=== PATIENT | male | born 1950 | race Caucasian/White ===

== ENCOUNTER 2017-12-15 17:01 | Inpatient (IN) | payer MEDICARE, OTHER ==
[~2017-12-15] VITALS: Ht 180.3 cm; Wt 119.0 kg
[~2017-12-15 17:01] MED LIST: Z.0.NO CURRENT MEDS
[2017-12-15] MEDS ORDERED: IODIXANOL 320 MG/ML 10 ML VIAL (for Rad CT) IVCONTRAST ONE (17:02)
[2017-12-15] MEDS ORDERED: GADODIAMIDE PF 287 MG/ML 5 ML VIAL (for RAD MRI) IV PUSH ONE (17:02)
[2017-12-15 17:08] VITALS: BP 169/82; PULSE 92; RESP 18; O2SAT 97
[2017-12-15] MEDS ORDERED: SODIUM CHLOR 0.9% 1000 ML INJ 1,000 ML IV ONE (17:09)
[2017-12-15 17:16] VITALS: BP 169/86; PULSE 86; RESP 18; TEMP 98.1; O2SAT 96; O2SAT 97
[2017-12-15 17:24] LABS: AUTOMATED NEUTROPHIL # 10.9 TH/MM3 (1.8-7.7); BASOPHIL # 0.1 TH/MM3 (0-0.2); BASOPHIL % 0.4 % (0.0-2.0); EOSINOPHIL % 0.1 % (0.0-4.0); HEMATOCRIT 49.5 % (39.0-51.0); HEMOGLOBIN 16.7 GM/DL (13.0-17.0); LYMPH % 7.2 % (9.0-44.0); LYMPHOCYTE # 0.9 TH/MM3 (1.0-4.8); MEAN CELL VOLUME 88.8 FL (80.0-100.0); MEAN CORPUSCULAR HGB CONC 33.8 % (32.0-36.0); MEAN PLATELET VOLUME 7.6 FL (7.0-11.0); MONO % 3.4 % (0.0-8.0); MONOCYTE # 0.4 TH/MM3 (0-0.9); NEUT % 88.9 % (16.0-70.0); PLATELET COUNT 254 TH/MM3 (150-450); RED BLOOD COUNT 5.57 MIL/MM3 (4.50-5.90); WHITE BLOOD COUNT 12.2 TH/MM3 (4.0-11.0)
[2017-12-15 17:39] LABS: PROTHROMBIN TIME - PATIENT 10.6 SEC (9.8-11.6)
[2017-12-15 17:39] LABS: BACTERIA, URINE RARE /hpf; BILIRUBIN, URINE NEG (NEG); BLOOD, URINE SMALL (NEG); GLUCOSE,URINE NEG (NEG); KETONE, URINE NEG (NEG); MUCUS URINE FEW /lpf (OCC); NITRITE,URINE NEG (NEG); PH, URINE 5.5 (5.0-8.5); URINE COLOR YELLOW (YELLW/STRAW); URINE LEUKOCYTE ESTERASE NEG (NEG)
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
--- NOTE | 2017-12-15 17:43 | RADRPT ---
EXAM DATE/TIME: 12/15/2017 17:27 [facility] COMPARISON: No previous studies available for comparison. INDICATIONS : Right sided gaze and right sided facial droop today. RADIATION DOSE: 56.35 CTDIvol (mGy) This report was called by Dr. Tijerina to DR. Flor at 1738. MEDICAL HISTORY : Unable to obtain SURGICAL HISTORY : Unable to obtain ENCOUNTER: Initial ACUITY: 1 day PAIN SCALE: Non-responsive LOCATION: cranial TECHNIQUE: Multiple contiguous axial images were obtained of the head. Using automated exposure control and adj ustment of the mA and/or kV according to patient size, radiation dose was kept as low as reasonably a chievable to obtain optimal diagnostic quality images. DICOM format image data is available electro nically for review and comparison. FINDINGS: CEREBRUM: Mild to moderate diffuse cerebral atrophy. The ventricles are normal for degree of atrophy. No evide nce of midline shift, mass lesion, hemorrhage or acute infarction. No extra-axial fluid collections are seen. POSTERIOR FOSSA: The cerebellum and brainstem are intact. The 4th ventricle is midline. The cerebellopontine angle i s unremarkable. EXTRACRANIAL: The visualized portion of the orbits is intact. SKULL: The calvaria is intact. No evidence of skull fracture. CONCLUSION: 1. No acute intracranial normality. Yannick Méndez MD on December 15, 2017 at 17:39 Board Certified Radiologist. This report was verified electronically.
--- NOTE | 2017-12-15 18:16 | RADRPT ---
EXAM DATE/TIME: 12/15/2017 17:32 [facility] COMPARISON: No previous studies available for comparison. INDICATIONS : Right sided gaze and right sided facial droop today. IV CONTRAST: 80 cc Visipaque (iodixanol) IV ; Cumulative dose for multiple exams. RADIATION DOSE: 11.02 CTDIvol (mGy) ; Patient body habitus; Combined Studies MEDICAL HISTORY : Non-responsive. SURGICAL HISTORY : Non-responsive. ENCOUNTER: Initial ACUITY: 1 day PAIN SCALE: Non-responsive LOCATION: Bilateral head TECHNIQUE: Volumetric scanning was performed using a multi-row detector CT scanner. The data was post processed with a variety of visualization algorithms including full volume maximum intensity projection, multi -planar sliding thin slab reformation, curved planar reformation, and surface rendering techniques. Using automated exposure control and adjustment of the mA and/or kV according to patient size, radiat ion dose was kept as low as reasonably achievable to obtain optimal diagnostic quality images. DICO M format image data is available electronically for review and comparison. FINDINGS: Anterior circulation: Distal intracranial internal carotid arteries are patent with flow extending to the middle and anteri or cerebral arteries. The right distal M1 segment is indistinct and incompletely opacified. Sagittal reconstructions suggest an intraluminal defect although likely not completely obstructing. The right M2 branches are opacified. Posterior circulation: Dominant right vertebral artery with flow extending to basilar artery. There is no evidence for aneu rysm, vessel truncation or stenosis, and no evidence for vascular malformation. CONCLUSION: 1. 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 Yannick Méndez MD on December 15, 2017 at 18:04 Board Certified Radiologist. This report was verified electronically.
[2017-12-15 18:31] LABS: TROPONIN I 6.71 NG/ML (0.02-0.05)
--- NOTE | 2017-12-15 18:39 | RADRPT ---
EXAM DATE/TIME: 12/15/2017 17:32 [facility] COMPARISON: No previous studies available for comparison. INDICATIONS : Right sided gaze and right sided facial droop today. IV CONTRAST: 80 cc Visipaque (iodixanol) IV RADIATION DOSE: 11.02 CTDIvol (mGy) ; Combined studies; Patient body habitus MEDICAL HISTORY : Non-responsive. SURGICAL HISTORY : Non-responsive. ENCOUNTER: Initial ACUITY: 1 day PAIN SCALE: Non-responsive LOCATION: Bilateral neck Elevated flow velocities and ICA/CCA ratios have been found to correlate with increased degrees of vessel stenosis, calculated as percentage of diameter relative to a normal segment of distal ICA/CCA. TECHNIQUE: Volumetric scanning was performed using a multirow detector CT scanner. The data was post processed with a variety of visualization algorithms including full-volume maximum intensity projection, multip lanar sliding thin-slab reformation, curved-planar reformation, and surface-rendering techniques. Us ing automated exposure control and adjustment of the mA and/or kV according to patient size, radiatio n dose was kept as low as reasonably achievable to obtain optimal diagnostic quality images. DICOM f ormat image data is available electronically for review and comparison. FINDINGS: AORTIC ARCH: There is direct origin of the left vertebral artery from the aortic arch. Arch vessels are widely pat ent. RIGHT CAROTID: The common carotid artery is intact. The carotid bulb has a normal configuration without ulceration o r narrowing. The internal carotid artery lumen is smooth without stenosis. The external carotid ursula ry is intact. LEFT CAROTID: The common carotid artery is intact. The carotid bulb has a normal configuration without ulceration or narrowing. The internal carotid artery lumen is smooth without stenosis. The external carotid ar kash is intact. VERTEBRALS: Direct origin of the left vertebral artery from the aortic arch. Right vertebral is minimally dominan t and both are patent throughout. CONCLUSION: No evidence of carotid stenosis Jann Castrejon MD on December 15, 2017 at 18:35 Board Certified Radiologist. This report was verified electronically.
[2017-12-15] MEDS: SODIUM CHLOR 0.9% 1000 ML INJ 1,000 ML IV SCH ×2 (18:48→20:03)
--- NOTE | 2017-12-15 18:53 | RADRPT ---
EXAM DATE/TIME: 12/15/2017 18:04 [facility] COMPARISON: No previous studies available for comparison. INDICATIONS : Stroke alert. Right sided weakness. CONTRAST: 25 cc Omniscan (gadodiamide) IV MEDICAL HISTORY : None. SURGICAL HISTORY : None. ENCOUNTER: Initial ACUITY: 1 day PAIN SCORE: 0/10 LOCATION: Head TECHNIQUE: Multiplanar, multisequence MRI of the brain was performed both prior to and following the administrat ion of paramagnetic contrast. FINDINGS: CEREBRUM: The ventricles are normal for age. No evidence of midline shift, mass lesion, hemorrhage or acute in farction. No extraaxial fluid collections are seen. The pituitary gland and suprasellar cistern are normal in configuration. WHITE MATTER: Scattered punctate areas of white matter T2 prolongation which are fairly benign in appearance. POSTERIOR FOSSA: The cerebellum and brainstem are intact. The 4th ventricle is midline. The cerebellopontine angle is unremarkable. The cerebellar tonsils are normal in position. DIFFUSION IMAGING: No focal areas of restricted diffusion are seen. No evidence of acute infarction. EXTRACRANIAL: The visualized portions of the orbits and paranasal sinuses are unremarkable. POST-CONTRAST: Mild asymmetric increased enhancement of the middle cerebral territory vessels on the right which cou ld be a manifestation of compensatory vasodilatation in the setting of nonacute proximal disease. CONCLUSION: No acute intracranial findings Jann Castrejon MD on December 15, 2017 at 18:47 Board Certified Radiologist. This report was verified electronically.
[2017-12-15] MEDS ORDERED: ASPIRIN 325 MG TAB PO ONE (19:15)
--- NOTE | 2017-12-15 19:27 | PD ---
HPI Chief Complaint: Neuro Symptoms/ Deficits Time Seen by Provider: 17:07 Travel History International Travel<30 days: No Contact w/Intl Traveler<30days: No Traveled to known affect area: No History of Present Illness HPI This is a 67-year-old male who presents to the emergency department with weakness. At 10:00 this morning he developed weakness in his right arm and right leg and he called an ambulance. He started to feel better so he sent the way. He says about a half an hour after the ambulance left he developed weakness again and had some difficulty seeing and was off balance, severe, constant until this evening when his family called [facility] again. He has never had symptoms like this before. He denies any chest pain or trouble breathing. [facility] Past Medical History Diminished Hearing: No Tetanus Vaccination: Unknown Influenza Vaccination: No ?: Not Social History Alcohol Use: No Tobacco Use: Yes (08/05 PPD) Substance Use: No Allergies-Medications (Allergen,Severity, Reaction): Coded Allergies: No Known Allergies (Verified Allergy, Mild, 04/13/07) Reported Meds & Prescriptions Reported Meds & Active Scripts Active No Active Prescriptions or Reported Medications Review of Systems Except as stated in HPI: all other systems reviewed are Neg Physical Exam Narrative GENERAL:Well appearing, no acute distress SKIN: Focused skin assessment warm and dry. HEAD: Atraumatic. Normocephalic. EYES: Pupils equal and round. No injection or drainage. ENT: Moist mucous membranes NECK: Trachea midline. CARDIOVASCULAR: Regular rate and rhythm. No murmur appreciated. RESPIRATORY: Clear to auscultation. Breath sounds equal bilaterally. GASTROINTESTINAL: Abdomen soft, non-tender, nondistended. MUSCULOSKELETAL: No obvious deformities. NEUROLOGICAL: Awake and alert. No obvious cranial nerve deficits. Left homonymous hemianopsia. Right upper extremity ataxia and 4+ out of 5 strength in the right upper extremity, 5 out of 5 strength in the right lower extremity and left lower extremity. No dysarthria or aphasia. PSYCHIATRIC: Appropriate mood and affect; insight and judgment normal. Data Data Last Documented VS Vital Signs Date Time Temp Pulse Resp B/P (MAP) Pulse Ox O2 Delivery O2 Flow Rate FiO2 12/15/17 17:56 21 12/15/17 17:16 98.1 86 18 169/86 (113) 96 Room Air Orders Orders Diet Npo (12/15/17 Dinner) Activity Bed Rest (12/15/17 ) Electrocardiogram (12/15/17 ) I-Stat Profile (12/15/17 17:09) Prothrombin Time / Inr (Pt) (12/15/17 17:09) Act Partial Throm Time (Ptt) (12/15/17 17:09) Complete Blood Count With Diff (12/15/17 17:09) Fibrinogen (12/15/17 17:09) Creatine Kinase (Cpk) (12/15/17 17:09) Troponin I (12/15/17 17:09) Ua Includes Microscopic (12/15/17 17:09) Drug Screen, Random Urine (12/15/17:) Type And Screen (12/15/17 17:) Ct Brain W/O Iv Contrast(Rout) (12/15/17 ) Consult Neurology (12/15/17 ) Blood Glucose (12/15/17 17:09) Ecg Monitoring (12/15/17 17:) Neuro Checks Q2HX12,Q4H (12/15/17 17:09) Nursing Bedside Swallow Assess .ONCE (12/15/17 17:) Iv Access Insert/Monitor (12/15/17 17:09) NPO (12/15/17 17:) Oximetry (12/15/17 17:) Resp Oxygen Nc Stroke (12/15/17 ) Sodium Chlor 0.9% 1000 Ml Inj (Ns 1000 M (12/15/17 17:09) Cath For Specimen (12/15/17 17:09) Cta Brain W Iv Contrast W 3d (12/15/17 17:14) Cta Neck W Iv Contrast W 3d (12/15/17 17:14) [place] Sedimentation Rate (12/15/17 17:15) Rapid Plasma Regin (Rpr) W Ttr (12/15/17 17:15) Gracie Screen (12/15/17 17:15) Thyroid Stimulating Hormone (12/15/17 17:15) Free Thyroxine (T4) (12/15/17 17:15) Vitamin B1 (Thiamine) (12/15/17 17:15) Vitamin B12 (12/15/17 17:15) Urinalysis - C+S If Indicated (12/15/17 17:15) Ast (Sgot) (12/15/17 17:15) Alt (Sgpt) (12/15/17 17:15) Mri Brain W&W/O Contrast (12/15/17 17:15) Echo 2d Comp With Doppler (12/15/17 17:15) Holter Monitor Recording (12/15/17 17:15) Circulation Crew Leader / Telemetry NOELLE.Q8H (12/15/17 17:15) [place] (12/15/17 17:15) ^ Other Nursing Orders (12/15/17 17:15) Sodium Chlor 0.9% 1000 Ml Inj (Ns 1000 M (12/15/17 17:15) Lipid Profile (12/15/17 17:15) Scd&Teds Bilateral/Knee High NOELLE.QSHIFT (12/15/17 17:15) (Hub Use Only)Inp Phy Cons/Ref (12/15/17 ) Iodixanol 320 Inj (Rad Ct) (Visipaque 32 (12/15/17 17:02) Gadodiamide Pf Inj (Omniscan Pf Inj) (12/15/17 17:02) Aspirin (Aspirin) (12/15/17 19:15) Heparin-D5w 25,000 U/250 Ml (Heparin-D5w (12/15/17 19:15) Act Partial Throm Time (Ptt) (12/15/17 19:08) Cbc No Diff, Includes Plts (12/15/17 19:08) Cbc No Diff, Includes Plts (12/18/17 06:00) Act Partial Throm Time (Ptt) (12/16/17 02:08) Occult Blood (Hemoccult) Stool (12/15/17 19:08) Labs Laboratory Tests Test 12/15/17 17:09 12/15/17 17:20 White Blood Count 12.2 TH/MM3 Red Blood Count 5.57 MIL/MM3 Hemoglobin 16.7 GM/DL Bedside Hemoglobin 17.0 G/DL Hematocrit 49.5 % Bedside Hematocrit 50.0 % Mean Corpuscular Volume 88.8 FL Mean Corpuscular Hemoglobin 30.0 PG Mean Corpuscular Hemoglobin Concent 33.8 % Red Cell Distribution Width 14.0 % Platelet Count 254 TH/MM3 Mean Platelet Volume 7.6 FL Neutrophils (%) (Auto) 88.9 % Lymphocytes (%) (Auto) 7.2 % Monocytes (%) (Auto) 3.4 % Eosinophils (%) (Auto) 0.1 % Basophils (%) (Auto) 0.4 % Neutrophils # (Auto) 10.9 TH/MM3 Lymphocytes # (Auto) 0.9 TH/MM3 Monocytes # (Auto) 0.4 TH/MM3 Eosinophils # (Auto) 0.0 TH/MM3 Basophils # (Auto) 0.1 TH/MM3 CBC Comment DIFF FINAL Differential Comment Prothrombin Time 10.6 SEC Prothromb Time International Ratio 1.0 RATIO Activated Partial Thromboplast Time 25.0 SEC Fibrinogen 530 mg/dL Bedside Sodium 139 MMOL/L Bedside Potassium 4.3 MMOL/L Bedside Chloride 103 MMOL/L Bedside Blood Urea Nitrogen 15 MG/DL Bedside Creatinine 1.0 MG/DL Bedside Glucose 150 MG/DL Total Creatine Kinase 240 U/L Troponin I 6.71 NG/ML Urine Color YELLOW Urine Turbidity CLEAR Urine pH 5.5 Urine Specific [place] 1.020 Urine Protein 30 mg/dL Urine Glucose (UA) NEG mg/dL Urine Ketones NEG mg/dL Urine Occult Blood SMALL Urine Nitrite NEG Urine Bilirubin NEG Urine Urobilinogen LESS THAN 2.0 MG/DL Urine Leukocyte Esterase NEG Urine RBC 1 /hpf Urine WBC 2 /hpf Urine Bacteria RARE /hpf Urine Mucus FEW /lpf Urine Opiates Screen NEG Urine Barbiturates Screen NEG Urine Amphetamines Screen NEG Urine Benzodiazepines Screen NEG Urine Cocaine Screen NEG Urine Cannabinoids Screen NEG [facility] Medical Decision Making Medical Screen Exam Complete: Yes Emergency Medical Condition: Yes Interpretation(s) EKG: Atrial fibrillation, ST elevation and V2 and V3 with some inferior ST depression. Mild leukocytosis with 88% neutrophils Troponin is 6.7 Last 24 hours Impressions Brain MRI [id number] Signed Impressions: Service Date/Time: Friday, December 15, 2017 18:04 - CONCLUSION: No acute intracranial findings Jann Castrejon MD Neck CTA [id number] Signed Impressions: Service Date/Time: Friday, December 15, 2017 17:32 - CONCLUSION: No evidence of carotid stenosis Jann Castrejon MD Head CTA [id number] Signed Impressions: Service Date/Time: Friday, December 15, 2017 17:32 - CONCLUSION: 1. 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 Yannick Méndez MD Head CT 12/15/17 0000 Signed Impressions: Service Date/Time: Friday, December 15, 2017 17:27 - CONCLUSION: 1. No acute intracranial normality. Yannick Méndez MD Differential Diagnosis Ischemic stroke, hemorrhagic stroke, seizure, myocardial infarction, aortic dissection Narrative Course This is a 67-year-old male who presents to the emergency department with right- sided weakness and left hemianopsia concerning for stroke. His symptoms sound like they started around 1030 this morning but have been stuttering. Here in the emergency department he was seen by the neurology Dr. Richard who requested a CT/ CTA. CTA demonstrated nonocclusive thrombus in M1. MRI demonstrates no ischemic stroke. Patient's symptoms significantly improved while in the emergency department. An EKG was obtained which demonstrates atrial fibrillation as well as ST segment elevation in V2 and V3 with some reciprocal changes. His troponin is 6. The patient denies any chest pain or cardiac symptoms. I spoke to Dr. Armando who agrees the patient does not warrant cardiac catheterization at this time. Both Dr. Armando and Dr. Richard agree patient should be managed with full dose aspirin and heparin. He will be admitted for further evaluation. I suspect this was a TIA and that his troponin elevation is secondary to catecholamines in the setting of a neurologic event. Critical Care Narrative Aggregate critical care time was 50 minutes. Time to perform other separately billable procedures was not included in the critical care time. My time did not include minutes spent treating any other patients simultaneously or on activities that did not directly contribute to the patient's treatment. The services I provided to this patient were to treat and/or prevent clinically significant deterioration that could result in: Disability, I provided critical care services requiring my management, as noted below: Chart data review, documentation time, medication orders and management, vital sign assessments/reviewing monitor data, ordering and reviewing lab tests, ordering and interpreting/reviewing x-rays and diagnostic studies, care of the patient and discussion of the patient with the admitting physicians. Physician Communication Physician Communication Discussed with Dr. Richard and Dr. Aramndo Diagnosis Primary Impression: TIA (transient ischemic attack) Qualified Codes: G45.8 - Other transient cerebral ischemic attacks and related syndromes Additional Impression: Elevated troponin Admitting Information Admitting Physician Requests: Admit Scripts No Active Prescriptions or Reported Meds Heather Flor MD December 15, 2017 19:27
[2017-12-15] MEDS ORDERED: BISACODYL 10 MG SUPP RECTAL PRN (20:00)
[2017-12-15] MEDS ORDERED: ACETAMINOPHEN 325 MG TAB PO PRN (20:00)
[2017-12-15] MEDS ORDERED: MAGNESIUM HYDROXIDE SUSP 30 ML CUP PO PRN (20:00)
[2017-12-15] MEDS ORDERED: ONDANSETRON HCL 4 MG/2 ML VIAL IVP PRN (20:00)
[2017-12-15] MEDS ORDERED: LACTULOSE SYRUP 20 GM/30 ML CUP PO PRN (20:00)
[2017-12-15] MEDS ORDERED: NALOXONE HCL 0.4 MG/ML AMP IV PUSH PRN (20:00)
[2017-12-15] MEDS ORDERED: SODIUM CHLORIDE 0.9% FLUSH 10 ML FLUSH IV FLUSH PRN (20:00)
[2017-12-15] MEDS ORDERED: SENNOSIDES 8.6 MG TAB PO PRN (20:00)
[2017-12-15 20:11] VITALS: BP 138/99
[2017-12-15 20:12] VITALS: PULSE 95
[2017-12-15] MEDS: HEPARIN-D5W 25,000 U/250 ML 250 ML IV PRN (20:33)
[2017-12-15] MEDS: DOCUSATE SODIUM 50 MG/SENNA 8.6 MG TAB PO SCH (21:00)
[2017-12-15] MEDS: SODIUM CHLORIDE 0.9% FLUSH 10 ML FLUSH IV FLUSH SCH (21:00)
[2017-12-15 22:21] LABS: CHOLESTEROL/ HDL RATIO 5.56 RATIO; FREE T4 0.93 NG/DL (0.76-1.46); HDL CHOLESTEROL 41.3 MG/DL (40.0-60.0)
[2017-12-15 23:18] LABS: TROPONIN I 6.46 NG/ML (0.02-0.05)
[2017-12-15 23:46] VITALS: BP 133/78; PULSE 94; RESP 16; O2SAT 98
[2017-12-16] VITALS (22 sets, daily range): BP systolic 116–161; BP diastolic 67–99; PULSE 67–97; RESP 16–22; TEMP 98.6; O2SAT 94–100
--- NOTE | 2017-12-16 00:22 | HHI.HP ---
[facility] Service [facility] Primary Care Physician Unknown Admission Diagnosis tia, elevated troponin Diagnoses: Travel History International Travel<30 Days: No Contact w/Intl Traveler <30 Da: No Traveled to Known Affected Are: No History of Present Illness 67-year-old male with no significant past medical history presents to the emergency department for evaluation of multiple falls and weakness. The patient reports that he came to the emergency department because he fell 2-3 times today. He denies any weakness. He denies hitting his head or loss of consciousness. According to emergency department documentation at 10:00 yesterday morning the patient developed weakness in his right arm and right leg and called an ambulance. The patient started to feel better and sent the ambulance away. The patient then developed weakness again approximately 30 minutes later and had difficulty seeing and was off balance. EMS was again called and the patient came to the hospital for further evaluation. The patient states he feels fine at this time. He denies any chest pain or shortness of breath. No abdominal pain. No nausea/vomiting/diarrhea. No fever /chills. Review of Systems Except as stated in HPI: all other systems reviewed are Neg Past Family Social History Past Medical History Patient denies however he has not been seen by a physician in approximately 5- 10 years Past Surgical History None Reported Medications Reported Meds & Active Scripts Active No Active Prescriptions or Reported Medications Allergies: Coded Allergies: No Known Allergies (Verified Allergy, Mild, 04/13/07) Family History Negative for CAD/DM Social History Smokes approximately 2 packs per day. Denies alcohol and illicit drugs. Physical Exam Vital Signs Vital Signs Date Time Temp Pulse Resp B/P (MAP) Pulse Ox O2 Delivery O2 Flow Rate FiO2 12/15/17 23:46 94 16 133/78 (96) 98 Room Air 12/15/17 22:31 21 12/15/17 20:12 95 12/15/17 20:11 138/99 (112) 12/15/17 17:56 21 12/15/17 17:16 98.1 86 18 169/86 (113) 96 Room Air 12/15/17 17:16 25 12/15/17 17:16 97 Room Air 12/15/17 17:08 92 18 169/82 (644) 71 Physical Exam GENERAL: Obese, male lying in bed SKIN: No rashes, ecchymoses or lesions. Cool and dry. HEAD: Atraumatic. Normocephalic. No temporal or scalp tenderness. EYES: Pupils equal round and reactive. Extraocular motions intact. No scleral icterus. No injection or drainage. ENT: Nose without bleeding, purulent drainage or septal hematoma. Throat without erythema, tonsillar hypertrophy or exudate. Uvula midline. Airway patent. NECK: Trachea midline. No JVD or lymphadenopathy. Supple, nontender, no meningeal signs. CARDIOVASCULAR: Regular rate and rhythm without murmurs, gallops, or rubs. RESPIRATORY: Clear to auscultation. Breath sounds equal bilaterally. No wheezes , rales, or rhonchi. GASTROINTESTINAL: Abdomen soft, non-tender, nondistended. No hepato-splenomegaly , or palpable masses. No guarding. MUSCULOSKELETAL: Extremities without clubbing, cyanosis, or edema. No joint tenderness, effusion, or edema noted. No calf tenderness. NEUROLOGICAL: Awake and alert. Cranial nerves II through XII intact. Patient is unable to fully lift his left upper extremity off the bed although triceps, biceps and handgrip strength all 5/5. Normal speech. Laboratory Laboratory Tests Test 12/15/17 17:09 12/15/17 17:20 12/15/17 20:45 White Blood Count 12.2 Red Blood Count 5.57 Hemoglobin 16.7 Bedside Hemoglobin 17.0 Hematocrit 49.5 Bedside Hematocrit 50.0 Mean Corpuscular Volume 88.8 Mean Corpuscular Hemoglobin 30.0 Mean Corpuscular Hemoglobin Concent 33.8 Red Cell Distribution Width 14.0 Platelet Count 254 Mean Platelet Volume 7.6 Neutrophils (%) (Auto) 88.9 Lymphocytes (%) (Auto) 7.2 Monocytes (%) (Auto) 3.4 Eosinophils (%) (Auto) 0.1 Basophils (%) (Auto) 0.4 Neutrophils # (Auto) 10.9 Lymphocytes # (Auto) 0.9 Monocytes # (Auto) 0.4 Eosinophils # (Auto) 0.0 Basophils # (Auto) 0.1 CBC Comment DIFF FINAL Differential Comment Erythrocyte Sedimentation Rate 4 Prothrombin Time 10.6 Prothromb Time International Ratio 1.0 Activated Partial Thromboplast Time 25.0 Fibrinogen 530 Bedside Sodium 139 Bedside Potassium 4.3 Bedside Chloride 103 Bedside Blood Urea Nitrogen 15 Bedside Creatinine 1.0 Bedside Glucose 150 Aspartate Amino Transf (AST/SGOT) 54 Alanine Aminotransferase (ALT/SGPT) 24 Total Creatine Kinase 240 188 Troponin I 6.71 6.46 Triglycerides Level 107 Cholesterol Level 230 LDL Cholesterol 167 HDL Cholesterol 41.3 Cholesterol/HDL Ratio 5.56 Vitamin B12 Level 300 Free Thyroxine 0.93 Thyroid Stimulating Hormone 3rd Gen 1.720 Urine Color YELLOW Urine Turbidity CLEAR Urine pH 5.5 Urine Specific [place] 1.020 Urine Protein 30 Urine Glucose (UA) NEG Urine Ketones NEG Urine Occult Blood SMALL Urine Nitrite NEG Urine Bilirubin NEG Urine Urobilinogen LESS THAN 2.0 Urine Leukocyte Esterase NEG Urine RBC 1 Urine WBC 2 Urine Bacteria RARE Urine Mucus FEW Urine Opiates Screen NEG Urine Barbiturates Screen NEG Urine Amphetamines Screen NEG Urine Benzodiazepines Screen NEG Urine Cocaine Screen NEG Urine Cannabinoids Screen NEG Result Diagram: 12/15/17 9356 Caprini VTE Risk Assessment Caprini VTE Risk Assessment: Mod/High Risk (score >= 2) Caprini Risk Assessment Model Point Value = 1 Point Value = 2 Point Value = 3 Point Value = 5 Age 41-60 Minor surgery BMI > 25 kg/m2 Swollen legs Varicose veins or History of unexplained or recurrent spontaneous Oral contraceptives or hormone replacement Sepsis (< 1 month) Serious lung disease, including pneumonia (< 1 month) Abnormal pulmonary function Acute myocardial infarction Congestive heart failure (< 1 month) History of inflammatory bowel disease Medical patient at bed rest Age 61-74 Arthroscopic surgery Major open surgery (> 45 min) Laparoscopic surgery (> 45 min) Malignancy Confined to bed (> 72 hours) Immobilizing plaster cast Central venous access Age >= 75 History of VTE Family history of VTE Factor V Leiden Prothrombin [id number] Lupus anticoagulant Anticardiolipin antibodies Elevated serum homocysteine Heparin-induced thrombocytopenia Other congenital or acquired thrombophilia Stroke (< 1 month) Elective arthroplasty Hip, pelvis, or leg fracture Acute spinal cord injury (< 1 month) Prophylaxis Regimen Total Risk Factor Score Risk Level Prophylaxis Regimen 0-1 Low Early ambulation 2 Moderate Order ONE of the following: *Sequential Compression Device (SCD) *Heparin 5000 units SQ BID 3-4 Higher Order ONE of the following medications: *Heparin 5000 units SQ TID *Enoxaparin/Lovenox 40 mg SQ daily (WT < 150 kg, CrCl > 30 mL/min) *Enoxaparin/Lovenox 30 mg SQ daily (WT < 150 kg, CrCl > 10-29 mL/min) *Enoxaparin/Lovenox 30 mg SQ BID (WT < 150 kg, CrCl > 30 mL/min) AND/OR *Sequential Compression Device (SCD) 5 or more Highest Order ONE of the following medications: *Heparin 5000 units SQ TID (Preferred with Epidurals) *Enoxaparin/Lovenox 40 mg SQ daily (WT < 150 kg, CrCl > 30 mL/min) *Enoxaparin/Lovenox 30 mg SQ daily (WT < 150 kg, CrCl > 10-29 mL/min) *Enoxaparin/Lovenox 30 mg SQ BID (WT < 150 kg, CrCl > 30 mL/min) AND *Sequential Compression Device (SCD) Assessment and Plan Assessment and Plan Assessment/plan: 1. CVA Head CT negative Neck CTA negative Brain MRI negative Head CTA showed a nonocclusive versus chronic thrombus in the right distal M1 segment Neurology consulted, appreciate recommendations Aspirin Lipid profile, A1c pending 2. Elevated troponin EKG showed atrial fibrillation without ST segment elevation or depression Initial troponin 6.71, repeat 6.46 Likely secondary to CVA Heparin drip Cardiology consulted, appreciate recommendations ACS rule out pending; serial troponins/EKGs 3. Atrial fibrillation Patient with atrial fibrillation on EKG, with no previous diagnosis of A. fib Cardiology consulted as above Patient will likely need long-term anticoagulation FEN NPO Electrolytes: monitor and replete prn Heparin ggt NS at 75 cc/hr Physician Certification 2 Midnight Certification Type: Admission for Inpatient Services Order for Inpatient Services The services are ordered in accordance with Medicare regulations or non- Medicare payer requirements, as applicable. In the case of services not specified as inpatient-only, they are appropriately provided as inpatient services in accordance with the 2-midnight benchmark. Estimated LOS (days): 2 2 days is the estimated time the patient will need to remain in the hospital, assuming treatment plan goals are met and no additional complications. Post-Hospital Plan: Not yet determined Renata Camargo MD December 16, 2017 00:22
[2017-12-16 00:45] LABS: AMORPHOUS SEDIMENT, URINE RARE; BACTERIA, URINE RARE /hpf; BILIRUBIN, URINE NEG (NEG); BLOOD, URINE SMALL (NEG); GLUCOSE,URINE NEG (NEG); KETONE, URINE NEG (NEG); MUCUS URINE FEW /lpf (OCC); NITRITE,URINE NEG (NEG); PH, URINE 5.5 (5.0-8.5); SQUAMOUS EPITHELIAL CELL URINE 1 /hpf (0-5); URINE COLOR YELLOW (YELLW/STRAW); URINE LEUKOCYTE ESTERASE NEG (NEG)
[2017-12-16 01:27] LABS: TROPONIN I 6.82 NG/ML (0.02-0.05)
[2017-12-16 03:12] LABS: BASOPHIL # 0.1 TH/MM3 (0-0.2); BASOPHIL % 0.7 % (0.0-2.0); EOSINOPHIL % 0.4 % (0.0-4.0); HEMATOCRIT 42.8 % (39.0-51.0); HEMOGLOBIN 15.3 GM/DL (13.0-17.0); LYMPH % 15.5 % (9.0-44.0); LYMPHOCYTE # 1.6 TH/MM3 (1.0-4.8); MEAN CELL VOLUME 87.4 FL (80.0-100.0); MEAN CORPUSCULAR HEMOGLOBIN 31.3 PG (27.0-34.0); MEAN CORPUSCULAR HGB CONC 35.8 % (32.0-36.0); MEAN PLATELET VOLUME 7.7 FL (7.0-11.0); MONOCYTE # 0.7 TH/MM3 (0-0.9); NEUT % 76.4 % (16.0-70.0); PLATELET COUNT 215 TH/MM3 (150-450); WHITE BLOOD COUNT 10.4 TH/MM3 (4.0-11.0)
[2017-12-16] MEDS: HEPARIN-D5W 25,000 U/250 ML 250 ML IV PRN ×2 (03:49→20:22)
[2017-12-16 06:05] LABS: CHOLESTEROL/ HDL RATIO 5.02 RATIO; HDL CHOLESTEROL 37.6 MG/DL (40.0-60.0)
[2017-12-16 06:30] LABS: BICARBONATE 20.1 MEQ/L (21.0-32.0); CALCIUM 8.8 MG/DL (8.5-10.1); CREATININE 0.84 MG/DL (0.60-1.30)
--- NOTE | 2017-12-16 08:00 | HHI.PR ---
Subjective Remarks ?afib? Objective Vital Signs Date Time Temp Pulse Resp B/P (MAP) Pulse Ox O2 Delivery O2 Flow Rate FiO2 12/16/17 07:41 12/16/17 07:13 67 16 116/67 (83) 100 Room Air 12/16/17 07:08 70 16 116/76 (89) 12/16/17 06:18 71 16 133/78 (96) 98 Room Air 12/16/17 05:40 82 16 133/72 (92) 98 Room Air 12/16/17 04:39 82 16 140/92 (108) 100 Room Air 12/16/17 03:53 97 16 150/99 (116) 98 Nasal Cannula 2.00 12/16/17 02:40 82 16 133/78 (96) 98 Room Air 12/16/17 01:36 77 16 124/85 (98) 100 Room Air 12/15/17 23:46 94 16 133/78 (96) 98 Room Air 12/15/17 22:31 21 12/15/17 20:12 95 12/15/17 20:11 138/99 (112) 12/15/17 17:56 21 12/15/17 17:16 98.1 86 18 169/86 (113) 96 Room Air 12/15/17 17:16 25 12/15/17 17:16 97 Room Air 12/15/17 17:08 92 18 169/82 (111) 97 Result Diagram: 12/16/17 0205 12/16/17 0515 Objective Remarks awake alert vff now still left sensory neglect 5/5 t/o Assessment and Plan Assessment and Plan imp drooop and vision resolved mri no cva ? afib on ivhep leroy need anticoag if cards decides this is afib mi also andrew pend ldl 133 needs statin Junior Yanes MD December 16, 2017 08:00
--- NOTE | 2017-12-16 09:56 | EKG ---
Date Performed: 12/15/2017 Time Performed: 17:23:19 PTAGE: 67 years EKG: ATRIAL FIBRILLATION LOW QRS VOLTAGE IN EXTREMITY LEADS SEPTAL MYOCARDIAL INFARCTION LATERAL MYOCARDIAL INFARCTION ACUTE DC ST ELEVATION IN THE ANTEROLATERAL LEADS CLINICAL CORRELATION IS REQUESTED NO PREVIOUS TRACING DOCTOR: Belkis Escobedo Interpretating Date/Time 12/16/2017 09:54:50
--- NOTE | 2017-12-16 09:57 | EKG ---
Date Performed: 12/15/2017 Time Performed: 20:37:19 PTAGE: 67 years EKG: ATRIAL FIBRILLATION WITH ABERRANT CONDUCTION OR VENTRICULAR PREMATURE COMPLEXES MARKED RIGH T AXIS DEVIATION LOW QRS VOLTAGE IN EXTREMITY LEADS SEPTAL MYOCARDIAL INFARCTION PROBABLE LATERAL RAAD CARDIAL INFARCTION ACUTE ME BIPHASIC ANTEROLATERAL T WAVES SUGGESTIVE OF AN EVOLVING ME Compare d to PREVIOUS TRACING , this is consistent with an evolving ME. Clinical correlation is strong ly suggested. PREVIOUS TRACIN12/15/2017 17.23 DOCTOR: Belkis Escobedo Interpretating Date/Time 12/16/2017 09:56:27
[2017-12-16] MEDS: ASPIRIN 325 MG TAB PO SCH (10:42)
[2017-12-16] MEDS: DOCUSATE SODIUM 50 MG/SENNA 8.6 MG TAB PO SCH ×2 (10:43→20:23)
[2017-12-16] MEDS: SODIUM CHLORIDE 0.9% FLUSH 10 ML FLUSH IV FLUSH SCH ×2 (10:45→20:23)
[2017-12-16] MEDS: ATORVASTATIN 40 MG TAB PO SCH (10:45)
[2017-12-16] MEDS: SODIUM CHLOR 0.9% 1000 ML INJ 1,000 ML IV SCH (13:27)
--- NOTE | 2017-12-16 14:20 | MB ---
cc: Bora Armando MD DATE: 12/16/2017 HISTORY OF PRESENT ILLNESS: Jackson is a very pleasant 67-year-old gentleman who presented to the emergency room last night, seen by Dr. Flor for chief complaint of weakness in the right upper extremity, right lower extremity. Also, visual field impairment, ataxia. Was evaluated in the emergency room for a CVA, by Dr. Richard. MRI of the brain was found to be negative. Incidentally was found to have elevated troponin, abnormal EKG. The patient never had any chest pain. Currently denies chest pain, fever, chills, cough, GI, bleeding, PND, orthopnea, syncope or dizziness. PAST MEDICAL HISTORY: As per history of present illness. SOCIAL HISTORY: He smokes 1-1/2 packs of cigarettes a day. Denies alcohol use. ALLERGIES: NONE. MEDICATIONS: In the hospital: Aspirin 325 mg daily, atorvastatin 40 mg daily, heparin drip. PHYSICAL EXAMINATION: VITAL SIGNS: Pulse 72, blood pressure 116/67, respiratory rate 16, temperature on admission 98.1. GENERAL: He is alert and oriented x 3, in no acute distress. NECK: Supple. No JVD. No bruit. HEART: S1, S2. No murmurs, rubs or gallops. LUNGS: Clear to auscultation bilaterally. ABDOMEN: Soft, nontender, nondistended with positive bowel sounds. EXTREMITIES: No lower extremity edema. Grossly appears to be nonfocal. LABORATORY DATA: EKG shows atrial fibrillation at rate of 86 beats per minute with anteroseptal Q-waves and biphasic T-waves with ST elevation of 1-2 mm in the V2, V3. Repeat EKG shows atrial fibrillation at a rate of 76 beats per minute, anteroseptal Q-waves, biphasic T-waves in V2, V3, ST depression in V4, V5, V6 with T-wave inversion in V5, V6 of 2-3 mm amplitude, also T-wave inversion in I and AVL. Third EKG shows atrial fibrillation at a rate of 81 beats per minute, anteroseptal Q-waves, [address] segment elevation in lead V2. Most recent EKG at 5 a.m. today 12/16/2017, atrial fibrillation at a rate of 73 beats per minute, anteroseptal Q-waves, nonspecific ST-T wave changes. Head CT on 12/15/2017, shows no acute intracranial abnormality. Neck CTA shows no evidence of carotid stenosis. Head CTA shows findings consistent with nonocclusive versus chronic thrombus in the right distal M1 segment. MRI of the brain 12/15/2017, no acute intracranial findings. White count 12.2, hemoglobin 16.7, hematocrit 49.5, platelet count 254. INR is 1.0. Fibrinogen is 530. Sodium 138, potassium 4.4, chloride 106, bicarbonate 20.1, BUN 13, creatinine 0.84, glucose 126. Troponin is initially 6.71 followed by 6.46, 6.82, at 6:35 this morning is 5.48. LDL was 133, HDL 37.6. Toxicology is negative. DIAGNOSES: 1. Atrial fibrillation. 2. TIA. 3. Occluded M1 segment per CT of the brain. 4. Tobacco abuse. 5. Non-STEMI. 6. Elevated troponin. 7. Elevated white count. 8. Hyperglycemia. DISCUSSION: The patient is already being treated with aspirin and heparin. His CHADS-VASc score if he is diagnosed with CVA, is at least 2. Dr. Richard has not stated in his note if this is a CVA or TIA however, he has indicated the patient will need anticoagulation if he is in atrial fibrillation and I do think he is in atrial fibrillation based on all 4 of his EKGs. We will defer Coumadin versus Novel Oral Anticoagulant agent to the hospitalist and/or Dr. Richard. Meanwhile, continue heparin drip until this decision is made. Otherwise, the patient is asymptomatic. Recommend followup 2D echo. Recommend ischemic evaluation if and when cleared by neurology for full use of full anticoagulation including possibly Plavix and 2b3a inhibitor. Bora Armando MD AWAbel/TL , 01:40 PM , 02:19 PM
[2017-12-16 16:01] LABS: HEMOGLOBIN A1C 6.8 % (4.3-6.0)
--- NOTE | 2017-12-16 17:14 | HHI.PR ---
Subjective Remarks Patient sitting up in bed. Says he is feeling all right. Denies any unilateral weakness. Denies any chest pain. Objective Vital Signs Date Time Temp Pulse Resp B/P (MAP) Pulse Ox O2 Delivery O2 Flow Rate FiO2 12/16/17 15:24 97 21 12/16/17 14:00 74 12/16/17 13:00 70 12/16/17 12:00 70 12/16/17 11:00 72 12/16/17 10:00 72 12/16/17 09:00 72 12/16/17 08:00 73 12/16/17 07:41 12/16/17 07:13 67 16 116/67 (83) 100 Room Air 12/16/17 07:08 70 16 116/76 (89) 12/16/17 06:18 71 16 133/78 (96) 98 Room Air 12/16/17 05:40 82 16 133/72 (92) 98 Room Air 12/16/17 04:39 82 16 140/92 (108) 100 Room Air 12/16/17 03:53 97 16 150/99 (116) 98 Nasal Cannula 2.00 12/16/17 02:40 82 16 133/78 (96) 98 Room Air 12/16/17 01:36 77 16 124/85 (98) 100 Room Air 12/15/17 23:46 94 16 133/78 (96) 98 Room Air 12/15/17 22:31 21 12/15/17 20:12 95 12/15/17 20:11 138/99 (112) 12/15/17 17:56 21 12/15/17 17:16 98.1 86 18 169/86 (113) 96 Room Air 12/15/17 17:16 25 12/15/17 17:16 97 Room Air 12/15/17 17:08 92 18 169/82 (111) 97 Result Diagram: 12/16/17 0205 12/16/17 0515 Objective Remarks GENERAL: Patient lying in bed. Appears comfortable. Alert and oriented 3. SKIN: Warm and dry. HEAD: Normocephalic. EYES: No scleral icterus. No injection or drainage. NECK: Supple, trachea midline. No JVD. CARDIOVASCULAR: Regular rate and rhythm without murmurs, gallops, or rubs. RESPIRATORY: Breath sounds equal bilaterally. No accessory muscle use. GASTROINTESTINAL: Abdomen soft, non-tender, nondistended. MUSCULOSKELETAL: No cyanosis, or edema. BACK: Nontender without obvious deformity. No CVA tenderness. A/P Assessment and Plan Assessment/plan: //TIA vs Stroke -Initially with left hand weakness which has resolved. Head CT negative Neck CTA negative Brain MRI negative Head CTA showed a nonocclusive versus chronic thrombus in the right distal M1 segment Neurology consulted, appreciate recommendations Aspirin Lipid profile, A1c pending = Follow-up 2D echo. LDL 133. Start atorvastatin. treatment for atrial fibrillation as below. //Elevated troponin EKG showed atrial fibrillation without ST segment elevation or depression Initial troponin 6.71, repeat 6.46 Likely secondary to CVA Heparin drip Cardiology consulted, appreciate recommendations ACS rule out pending; serial troponins/EKGs = Cardiology following.. Appreciate assistance. Ischemic eval for heart when cleared by neurology. //Atrial fibrillation Patient with atrial fibrillation on EKG, with no previous diagnosis of A. fib Cardiology consulted as above Patient will likely need long-term anticoagulation = Patient continues on heparin drip to atrial fibrillation. Cardiology following. Start on warfarin versus novel anticoagulation when approved by neurology. Follow-up 2D echo. FEN NPO Electrolytes: monitor and replete prn Heparin ggt NS at 75 cc/hr Discharge Planning Home with outpatient PT when cleared by cardiology. Skip Mejia MD December 16, 2017 17:14
--- NOTE | 2017-12-16 18:16 | EKG ---
Date Performed: 12/15/2017 Time Performed: 23:54:11 PTAGE: 67 years EKG: ATRIAL FIBRILLATION LOW QRS VOLTAGE IN EXTREMITY LEADS SEPTAL MYOCARDIAL INFARCTION ACUT E CT NO PREVIOUS TRACING DOCTOR: Belkis Escobedo Interpretating Date/Time 12/16/2017 18:15:09
--- NOTE | 2017-12-16 18:17 | EKG ---
Date Performed: 12/16/2017 Time Performed: 05:05:04 PTAGE: 67 years EKG: ATRIAL FIBRILLATION LOW QRS VOLTAGE IN EXTREMITY LEADS ANTEROSEPTAL MYOCARDIAL INFARCTION A BNORMAL ECG PREVIOUS TRACING 12/15/2017 @ 23.54 Since the previous tracing, no significant change no raysa DOCTOR: Belkis Escobedo Interpretating Date/Time 12/16/2017 18:16:08
[2017-12-16] MEDS ORDERED: MELATONIN 5 MG TAB PO ONE (21:00)
[2017-12-17] VITALS (21 sets, daily range): BP systolic 110–148; BP diastolic 65–112; PULSE 67–101; RESP 19–63; TEMP 98.1–98.8; O2SAT 88–97
[2017-12-17] MEDS: SODIUM CHLOR 0.9% 1000 ML INJ 1,000 ML IV SCH ×2 (04:39→13:47)
--- NOTE | 2017-12-17 07:54 | HHI.PR ---
Subjective Remarks afib Objective Vital Signs Date Time Temp Pulse Resp B/P (MAP) Pulse Ox O2 Delivery O2 Flow Rate FiO2 12/17/17 06:00 71 12/17/17 04:00 98.8 70 23 136/80 (98) 94 12/17/17 04:00 70 12/17/17 02:00 88 12/17/17 00:00 98.2 101 63 148/73 (98) 88 12/17/17 00:00 101 12/16/17 22:00 77 12/16/17 20:00 98.6 80 22 161/95 (117) 94 12/16/17 20:00 80 12/16/17 18:00 71 12/16/17 17:00 79 12/16/17 16:00 81 12/16/17 15:24 97 21 12/16/17 15:00 70 12/16/17 14:00 74 12/16/17 13:00 70 12/16/17 12:00 70 12/16/17 11:00 72 12/16/17 10:00 72 12/16/17 09:00 72 12/16/17 08:00 73 I/O 12/16/17 12/16/17 12/16/17 12/17/17 12/17/17 12/17/17 06:59 14:59 22:59 06:59 14:59 22:59 Intake Total 1000 ml 200 ml 1000 ml Output Total 600 ml Balance 1000 ml -400 ml 1000 ml Intake Oral 200 ml IV Total 1000 ml 1000 ml Output Urine Total 600 ml # Voids 3 # Bowel Movements 1 Result Diagram: 12/16/17 0205 12/16/17 0515 Objective Remarks awake alert vff nowno longer left sensory neglect 12/06 t/o Assessment and Plan Assessment and Plan imp droop and vision resolved mri no cva afib on ivhep leroy need anticoag eliquis ok by me mi also andrew pend ldl 133 on statin echo pend cards andrew ok by me no cva but major tia Junior Richard MD December 17, 2017 07:54
[2017-12-17] MEDS: ATORVASTATIN 40 MG TAB PO SCH (09:20)
[2017-12-17] MEDS: ASPIRIN 325 MG TAB PO SCH (09:20)
[2017-12-17] MEDS: DOCUSATE SODIUM 50 MG/SENNA 8.6 MG TAB PO SCH ×2 (09:20→21:00)
[2017-12-17] MEDS: SODIUM CHLORIDE 0.9% FLUSH 10 ML FLUSH IV FLUSH SCH ×2 (09:21→21:35)
--- NOTE | 2017-12-17 14:23 | HHI.PR ---
Subjective Remarks Reports he wants to be get out of the [facility]. He reports no active chest pain or shortness of breath. No further weakness or numbness at this time. Objective Vitals Vital Signs Date Time Temp Pulse Resp B/P (MAP) Pulse Ox O2 Delivery O2 Flow Rate FiO2 12/17/17 12:00 98.3 67 22 110/73 (85) 94 12/17/17 12:00 67 12/17/17 11:00 71 12/17/17 10:00 69 12/17/17 09:08 96 21 12/17/17 09:00 82 12/17/17 08:00 98.1 74 19 139/85 (103) 93 12/17/17 08:00 74 12/17/17 07:00 79 12/17/17 06:00 71 12/17/17 04:00 98.8 70 23 136/80 (98) 94 12/17/17 04:00 70 12/17/17 02:00 88 12/17/17 00:00 98.2 101 63 148/73 (98) 88 12/17/17 00:00 101 12/16/17 22:00 77 12/16/17 20:00 98.6 80 22 161/95 (117) 94 12/16/17 20:00 80 12/16/17 18:00 71 12/16/17 17:00 79 12/16/17 16:00 81 12/16/17 15:24 97 21 12/16/17 15:00 70 I/O 12/16/17 12/16/17 12/16/17 12/17/17 12/17/17 12/17/17 07:00 15:00 23:00 07:00 15:00 23:00 Intake Total 1000 ml 200 ml 1000 ml Output Total 600 ml Balance 1000 ml -400 ml 1000 ml Intake Oral 200 ml IV Total 1000 ml 1000 ml Output Urine Total 600 ml # Voids 3 # Bowel Movements 1 Result Diagram: 12/16/17 0205 12/16/17 0515 Other Results Item Value Date Time Troponin I 5.48 NG/ML *H # 12/16/17 0635 Troponin I 6.82 NG/ML *H # 12/16/17 0000 Objective Remarks GENERAL: This is a well-nourished, well-developed patient, in no apparent distress. CARDIOVASCULAR: Regular rate and irregular rhythm without murmurs, gallops, or rubs. RESPIRATORY: Clear to auscultation. Breath sounds equal bilaterally. No wheezes , rales, or rhonchi. GASTROINTESTINAL: Abdomen soft, non-tender, nondistended. Normal, active bowel sounds MUSCULOSKELETAL: Extremities without clubbing, cyanosis, or edema. NEURO: Alert & Oriented x4 to person, place, time, situation. Moves all ext x4 A/P Assessment and Plan 1. TIA with negative brain MRI Head CT negative Neck CTA negative Brain MRI negative Head CTA showed a nonocclusive versus chronic thrombus in the right distal M1 segment Neurology consulted, appreciate recommendations and recommends heparin with transition to Eliquis pending cardiology evaluation and results of the stress test continue with aspirin. Statin 2. Glucose intolerance with likely underlying early diabetes mellitus type 2 Hemoglobin A1c 6.8. Consult nutrition for diabetic diet education. Accu-Cheks with sliding scale insulin. Consider metformin in the next 48 hours as patient had recent contrast. 3. Elevated troponin rule out underlying non-ST elevation ND. EKG showed atrial fibrillation without ST segment elevation or depression Initial troponin 6.71, with trending levels down Likely secondary to CVA Heparin drip, will transition to Eliquis pending nuclear stress test results. Cardiology consulted, appreciate recommendations 3. Atrial fibrillation -currently rate controlled Patient with atrial fibrillation on EKG, with no previous diagnosis of A. fib Cardiology consulted as above Patient will likely need long-term anticoagulation, Eliquis DVT prophylaxis- heparin Discharge Planning Home tomorrow if stress test negative Ale Dietz MD December 17, 2017 14:23
[2017-12-17] MEDS ORDERED: GLUCAGON 1 MG/ML VIAL OTHER PRN (14:30)
[2017-12-17] MEDS ORDERED: DEXTROSE 50% IN WATER 50 ML VIAL(D50) IV PUSH PRN (14:30)
--- NOTE | 2017-12-17 15:54 | ECHRPT ---
Indication: CVA/TIA CONCLUSIONS Technically difficult study The left ventricular systolic function is low normal with an estimated ejection fraction in the rang e of 50- 55%. Mild mitral valve regurgitation. There is trace tricuspid valve regurgitation. BP: / HR: Rhythm: MEASUREMENTS (Male / Female) Normal Values Technical Quality:Technically difficult study 2D ECHO LV Diastolic Diameter PLAX 5.4 cm 4.2 - 5.9 / 3.9 - 5.3 cm LV Systolic Diameter PLAX 4.3 cm IVS Diastolic Thickness 1.6 cm 0.6 - 1.0 / 0.6 - 0.9 cm LVPW Diastolic Thickness 0.9 cm 0.6 - 1.0 / 0.6 - 0.9 cm LV Relative Wall Thickness 0.5 RV Internal Dim ED PLAX 2.9 cm M-MODE Aortic Root Diameter MM 3.6 cm AV Cusp Separation MM 2.3 cm DOPPLER Mitral E Point Velocity 94.4 cm/s TR Peak Velocity 284.0 cm/s TR Peak Gradient 32.3 mmHg FINDINGS LEFT VENTRICLE Normal left ventricular size. The left ventricular systolic function is low normal with an estimated ejection fraction in the rang e of 50- 55%. There was limited left ventricular wall motion assessment due to poor endocardial visualization. RIGHT VENTRICLE Normal right ventricular size and systolic function. LEFT ATRIUM The left atrial size is normal. RIGHT ATRIUM The right atrial size is normal. ATRIAL SEPTUM Normal atrial septal thickness AORTA The aortic root and proximal ascending aorta are normal in size on limited imaging. MITRAL VALVE Grossly normal appearing. Mild mitral valve regurgitation. Mild mitral annular calcification. AORTIC VALVE Trileaflet aortic valve. No aortic valve stenosis or regurgitation. TRICUSPID VALVE Grossly normal tricuspid valve. There is trace tricuspid valve regurgitation. No tricuspid valve stenosis. PULMONARY VALVE The pulmonary valve is not well visualized. VESSELS The inferior vena cava is normal in size. PERICARDIUM No pericardial effusion. Ridge Bang DO (Electronically Signed) Final Date:17 Dec 2017 15:53
[2017-12-17] MEDS: INSULIN ASPART SUPPLEMENTAL SCALE SQ SCH ×2 (17:00→21:00)
[2017-12-17] MEDS: HEPARIN-D5W 25,000 U/250 ML 250 ML IV PRN (17:02)
[2017-12-18] VITALS (9 sets, daily range): BP systolic 116–164; BP diastolic 59–82; PULSE 66–82; RESP 18–29; TEMP 97.8–98.4; O2SAT 94–99
[2017-12-18] MEDS: SODIUM CHLOR 0.9% 1000 ML INJ 1,000 ML IV SCH ×2 (02:13→15:11)
[2017-12-18] MEDS: SODIUM CHLORIDE 0.9% FLUSH 10 ML FLUSH IV FLUSH SCH ×2 (07:23→22:50)
[2017-12-18] MEDS: DOCUSATE SODIUM 50 MG/SENNA 8.6 MG TAB PO SCH ×2 (07:24→22:50)
[2017-12-18] MEDS: INSULIN ASPART SUPPLEMENTAL SCALE SQ SCH ×4 (07:39→21:00)
--- NOTE | 2017-12-18 07:47 | HHI.PR ---
Subjective Remarks In the chair. Says no chest pain overnight. No sob , palpitations, n/v/d/c. Feels some improvement. today. Objective Vitals Vital Signs Date Time Temp Pulse Resp B/P (MAP) Pulse Ox O2 Delivery O2 Flow Rate FiO2 12/18/17 04:00 73 12/18/17 04:00 98.3 73 20 129/78 (95) 94 12/18/17 02:00 74 12/18/17 00:00 98.4 71 20 148/79 (102) 99 12/18/17 00:00 71 12/17/17 22:00 70 12/17/17 20:35 132/81 (98) 12/17/17 20:08 97 21 12/17/17 20:00 98.6 77 20 144/112 (123) 95 12/17/17 20:00 77 12/17/17 18:00 75 12/17/17 17:00 90 12/17/17 16:00 68 12/17/17 16:00 98.3 68 23 147/65 (92) 94 12/17/17 15:00 70 12/17/17 14:00 71 12/17/17 13:00 70 12/17/17 12:00 98.3 67 22 110/73 (85) 94 12/17/17 12:00 67 12/17/17 11:00 71 12/17/17 10:00 69 12/17/17 09:08 96 21 12/17/17 09:00 82 12/17/17 08:00 98.1 74 19 139/85 (103) 93 12/17/17 08:00 74 I/O 12/17/17 12/17/17 12/17/17 12/18/17 12/18/17 12/18/17 07:00 15:00 23:00 07:00 15:00 23:00 Intake Total 1000 ml 1000 ml 550 ml 60 ml Output Total 800 ml 1150 ml Balance 1000 ml 1000 ml -250 ml -1090 ml Intake Oral 300 ml 60 ml IV Total 1000 ml 1000 ml 250 ml Output Urine Total 800 ml 1150 ml # Voids 3 # Bowel Movements 1 1 Result Diagram: 12/16/17 0205 12/16/17 0515 Imaging Last Impressions Brain MRI 12/15/17 1715 Signed Impressions: Service Date/Time: Friday, December 15, 2017 18:04 - CONCLUSION: No acute intracranial findings Jann Castrejon MD Neck CTA 12/15/17 1714 Signed Impressions: Service Date/Time: Friday, December 15, 2017 17:32 - CONCLUSION: No evidence of carotid stenosis Jann Castrejon MD Head CTA 12/15/17 1714 Signed Impressions: Service Date/Time: Friday, December 15, 2017 17:32 - CONCLUSION: 1. 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 Yannick Méndez MD Head CT 12/15/17 0000 Signed Impressions: Service Date/Time: Friday, December 15, 2017 17:27 - CONCLUSION: 1. No acute intracranial normality. Yannick Méndez MD Objective Remarks CARDIOVASCULAR: Regular rate and irregular rhythm without murmurs, gallops, or rubs. RESPIRATORY: Clear to auscultation. Breath sounds equal bilaterally. No wheezes , rales, or rhonchi. GASTROINTESTINAL: Abdomen soft, non-tender, nondistended. Normal, active bowel sounds MUSCULOSKELETAL: Extremities without clubbing, cyanosis, or edema. NEURO: Alert & Oriented x4 to person, place, time, situation. Moves all ext x4 A/P Assessment and Plan TIA with negative brain MRI Head CT negative Neck CTA negative Brain MRI negative Head CTA showed a nonocclusive versus chronic thrombus in the right distal M1 segment Neurology consulted, appreciate recommendations and recommends heparin with transition to Eliquis pending cardiology evaluation and results of the stress test continue with aspirin. Statin Glucose intolerance with likely underlying early diabetes mellitus type 2 Hemoglobin A1c 6.8. Consult nutrition for diabetic diet education. Accu-Cheks with sliding scale insulin. Consider metformin in the next 48 hours as patient had recent contrast. Elevated troponin rule out underlying non-ST elevation WI EKG showed atrial fibrillation without ST segment elevation or depression Initial troponin 6.71, with trending levels down Likely secondary to CVA Heparin drip, will transition to Eliquis pending nuclear stress test results. Cardiology consulted, appreciate recommendations Atrial fibrillation -currently rate controlled Patient with atrial fibrillation on EKG, with no previous diagnosis of A. fib Cardiology consulted as above Patient will likely need long-term anticoagulation, Eliquis DVT prophylaxis- heparin Discharge Planning Transfer to med/surg floor. Anticipate DC home if stress test negative Radha De Paz MD December 18, 2017 07:47
[2017-12-18] MEDS ORDERED: ATOR40TA16 PO (07:48)
[2017-12-18] MEDS ORDERED: ASA325 PO (07:48)
--- NOTE | 2017-12-18 07:53 | HHI.DS ---
Discharge Summary Admission Date December 15, 2017 at 19:42 Discharge Date: December 18, 2017 Admitting Diagnosis tia, elevated troponin Brief History - From Admission 67-year-old male with no significant past medical history presents to the emergency department for evaluation of multiple falls and weakness. The patient reports that he came to the emergency department because he fell 2-3 times today. He denies any weakness. He denies hitting his head or loss of consciousness. According to emergency department documentation at 10:00 yesterday morning the patient developed weakness in his right arm and right leg and called an ambulance. The patient started to feel better and sent the ambulance away. The patient then developed weakness again approximately 30 minutes later and had difficulty seeing and was off balance. EMS was again called and the patient came to the hospital for further evaluation. The patient states he feels fine at this time. He denies any chest pain or shortness of breath. No abdominal pain. No nausea/vomiting/diarrhea. No fever /chills. CBC/BMP: 12/16/17 0205 12/16/17 0515 Significant Findings Laboratory Tests Test 12/15/17 17:09 12/15/17 17:20 12/15/17 20:45 12/16/17 00:00 White Blood Count 12.2 TH/MM3 (4.0-11.0) Neutrophils (%) (Auto) 88.9 % (16.0-70.0) Lymphocytes (%) (Auto) 7.2 % (9.0-44.0) Neutrophils # (Auto) 10.9 TH/MM3 (1.8-7.7) Lymphocytes # (Auto) 0.9 TH/MM3 (1.0-4.8) Fibrinogen 530 mg/dL (227-377) Bedside Glucose 150 MG/DL (68-110) Aspartate Amino Transf (AST/SGOT) 54 U/L (15-37) Troponin I 6.71 NG/ML (0.02-0.05) 6.46 NG/ML (0.02-0.05) 6.82 NG/ML (0.02-0.05) Cholesterol Level 230 MG/DL (120-200) LDL Cholesterol 167 MG/DL (0-99) Urine Turbidity CLOUDY (CLEAR) Urine Protein 30 mg/dL (NEG-TRACE) Urine Occult Blood SMALL (NEG) Urine Bacteria RARE /hpf (NONE) Urine Mucus FEW /lpf (OCC) Test 12/16/17 02:05 12/16/17 03:12 12/16/17 05:15 12/16/17 06:30 Neutrophils (%) (Auto) 76.4 % (16.0-70.0) Neutrophils # (Auto) 8.0 TH/MM3 (1.8-7.7) Hemoglobin A1c 6.8 % (4.3-6.0) Random Glucose 126 MG/DL (74-106) Carbon Dioxide Level 20.1 MEQ/L (21.0-32.0) LDL Cholesterol 133 MG/DL (0-99) HDL Cholesterol 37.6 MG/DL (40.0-60.0) Test 12/16/17 06:35 12/16/17 07:40 12/16/17 09:50 12/16/17 17:00 Troponin I 5.48 NG/ML (0.02-0.05) Activated Partial Thromboplast Time 32.0 SEC (24.3-30.1) Test 12/17/17 00:05 12/17/17 07:05 12/17/17 14:20 12/17/17 23:01 Activated Partial Thromboplast Time 33.1 SEC (24.3-30.1) 35.6 SEC (24.3-30.1) 31.5 SEC (24.3-30.1) 37.1 SEC (24.3-30.1) Imaging Last Impressions Brain MRI 12/15/[id number] Signed Impressions: Service Date/Time: Friday, December 15, 2017 18:04 - CONCLUSION: No acute intracranial findings Jann Castrejon MD Neck CTA [id number]/15/171713 Signed Impressions: Service Date/Time: Friday, December 15, 2017 17:32 - CONCLUSION: No evidence of carotid stenosis Jann Castrejon MD Head CTA [id number]/[id number] Signed Impressions: Service Date/Time: Friday, December 15, 2017 17:32 - CONCLUSION: 1. 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 Yannick Méndez MD Head CT 12/15/17 0000 Signed Impressions: Service Date/Time: Friday, December 15, 2017 17:27 - CONCLUSION: 1. No acute intracranial normality. Yannick Méndez MD PE at Discharge CARDIOVASCULAR: Regular rate and irregular rhythm without murmurs, gallops, or rubs. RESPIRATORY: Clear to auscultation. Breath sounds equal bilaterally. No wheezes , rales, or rhonchi. GASTROINTESTINAL: Abdomen soft, non-tender, nondistended. Normal, active bowel sounds MUSCULOSKELETAL: Extremities without clubbing, cyanosis, or edema. NEURO: Alert & Oriented x4 to person, place, time, situation. Moves all ext x4 Pt Condition on Discharge: Stable Discharge Disposition: Discharge Home Discharge Time: > 30 minutes Discharge Instructions DIET: Follow Instructions for: Heart Healthy Diet Activities you can perform: Regular-No Restrictions New Medications: Aspirin (Px Aspirin) 325 Mg Tab 325 MG PO DAILY for Blood Clot Prevention, #30 TAB Atorvastatin (Atorvastatin) 40 Mg Tab 40 MG PO DAILY for Cholesterol Management, #30 TAB Radha De Paz MD December 18, 2017 07:53
[2017-12-18 08:07] LABS: HEMATOCRIT 42.8 % (39.0-51.0); HEMOGLOBIN 14.7 GM/DL (13.0-17.0); MEAN CELL VOLUME 87.9 FL (80.0-100.0); MEAN CORPUSCULAR HEMOGLOBIN 30.2 PG (27.0-34.0); MEAN CORPUSCULAR HGB CONC 34.4 % (32.0-36.0); MEAN PLATELET VOLUME 7.9 FL (7.0-11.0); PLATELET COUNT 230 TH/MM3 (150-450); RED BLOOD COUNT 4.87 MIL/MM3 (4.50-5.90); RED CELL DISTRIBUTION WIDTH 13.8 % (11.6-17.2); WHITE BLOOD COUNT 8.4 TH/MM3 (4.0-11.0)
[2017-12-18] MEDS: ATORVASTATIN 40 MG TAB PO SCH (08:12)
[2017-12-18] MEDS: ASPIRIN 325 MG TAB PO SCH (08:13)
--- NOTE | 2017-12-18 08:33 | HHI.DS ---
Discharge Summary Admission Date December 15, 2017 at 19:42 Admitting Diagnosis tia, elevated troponin Brief History - From Admission 67-year-old male with no significant past medical history presents to the emergency department for evaluation of multiple falls and weakness. The patient reports that he came to the emergency department because he fell 2-3 times today. He denies any weakness. He denies hitting his head or loss of consciousness. According to emergency department documentation at 10:00 yesterday morning the patient developed weakness in his right arm and right leg and called an ambulance. The patient started to feel better and sent the ambulance away. The patient then developed weakness again approximately 30 minutes later and had difficulty seeing and was off balance. EMS was again called and the patient came to the hospital for further evaluation. The patient states he feels fine at this time. He denies any chest pain or shortness of breath. No abdominal pain. No nausea/vomiting/diarrhea. No fever /chills. CBC/BMP: 12/18/17 0600 12/16/17 0515 Significant Findings Laboratory Tests Test 12/15/17 17:09 12/15/17 17:20 12/15/17 20:45 12/16/17 00:00 White Blood Count 12.2 TH/MM3 (4.0-11.0) Neutrophils (%) (Auto) 88.9 % (16.0-70.0) Lymphocytes (%) (Auto) 7.2 % (9.0-44.0) Neutrophils # (Auto) 10.9 TH/MM3 (1.8-7.7) Lymphocytes # (Auto) 0.9 TH/MM3 (1.0-4.8) Fibrinogen 530 mg/dL (227-377) Bedside Glucose 150 MG/DL (68-110) Aspartate Amino Transf (AST/SGOT) 54 U/L (15-37) Troponin I 6.71 NG/ML (0.02-0.05) 6.46 NG/ML (0.02-0.05) 6.82 NG/ML (0.02-0.05) Cholesterol Level 230 MG/DL (120-200) LDL Cholesterol 167 MG/DL (0-99) Urine Turbidity CLOUDY (CLEAR) Urine Protein 30 mg/dL (NEG-TRACE) Urine Occult Blood SMALL (NEG) Urine Bacteria RARE /hpf (NONE) Urine Mucus FEW /lpf (OCC) Test 12/16/17 02:05 12/16/17 03:12 12/16/17 05:15 12/16/17 06:30 Neutrophils (%) (Auto) 76.4 % (16.0-70.0) Neutrophils # (Auto) 8.0 TH/MM3 (1.8-7.7) Hemoglobin A1c 6.8 % (4.3-6.0) Random Glucose 126 MG/DL (74-106) Carbon Dioxide Level 20.1 MEQ/L (21.0-32.0) LDL Cholesterol 133 MG/DL (0-99) HDL Cholesterol 37.6 MG/DL (40.0-60.0) Test 12/16/17 06:35 12/16/17 07:40 12/16/17 09:50 12/16/17 17:00 Troponin I 5.48 NG/ML (0.02-0.05) Activated Partial Thromboplast Time 32.0 SEC (24.3-30.1) Test 12/17/17 00:05 12/17/17 07:05 12/17/17 14:20 12/17/17 23:01 Activated Partial Thromboplast Time 33.1 SEC (24.3-30.1) 35.6 SEC (24.3-30.1) 31.5 SEC (24.3-30.1) 37.1 SEC (24.3-30.1) Test 12/18/17 06:00 Activated Partial Thromboplast Time 37.3 SEC (24.3-30.1) PE at Discharge CARDIOVASCULAR: Regular rate and irregular rhythm without murmurs, gallops, or rubs. RESPIRATORY: Clear to auscultation. Breath sounds equal bilaterally. No wheezes , rales, or rhonchi. GASTROINTESTINAL: Abdomen soft, non-tender, nondistended. Normal, active bowel sounds MUSCULOSKELETAL: Extremities without clubbing, cyanosis, or edema. NEURO: Alert & Oriented x4 to person, place, time, situation. Moves all ext x4 Pt Condition on Discharge: Stable Discharge Disposition: Discharge Home Discharge Instructions DIET: Follow Instructions for: Heart Healthy Diet Activities you can perform: Regular-No Restrictions Radha De Paz MD December 18, 2017 08:33
[2017-12-18] MEDS: HEPARIN-D5W 25,000 U/250 ML 250 ML IV PRN ×2 (08:42→22:58)
[2017-12-18] MEDS ORDERED: REGADENOSON INJ 0.4 MG/5 ML SYR ONE (12:24)
[2017-12-19] VITALS: BP 123/83; PULSE 72; RESP 18; TEMP 97.8; O2SAT 95
[2017-12-19 04:00] VITALS: BP 118/81; PULSE 78; RESP 18; TEMP 97.3; O2SAT 95
--- NOTE | 2017-12-19 07:46 | HHI.PR ---
Subjective Remarks afib Objective Vital Signs Date Time Temp Pulse Resp B/P (MAP) Pulse Ox O2 Delivery O2 Flow Rate FiO2 12/19/17 04:00 97.3 78 18 118/81 (93) 95 12/19/17 00:00 97.8 72 18 123/83 (96) 95 12/18/17 20:00 98.0 67 18 116/82 (93) 96 12/18/17 16:00 97.8 73 20 164/79 (107) 96 12/18/17 14:00 82 12/18/17 12:00 98.2 71 20 125/62 (83) 94 12/18/17 12:00 71 12/18/17 10:00 67 12/18/17 08:00 98.4 66 29 130/59 (82) 94 12/18/17 08:00 80 I/O 12/18/17 12/18/17 12/18/17 12/19/17 12/19/17 12/19/17 07:00 15:00 23:00 07:00 15:00 23:00 Intake Total 60 ml 730 ml 1725 ml Output Total 1150 ml 850 ml 900 ml Balance -1090 ml -120 ml 825 ml Intake Oral 60 ml 480 ml 750 ml IV Total 250 ml 975 ml Output Urine Total 1150 ml 850 ml 900 ml # Voids 3 # Bowel Movements 1 1 4 Result Diagram: 12/18/17 0600 12/16/17 0515 Objective Remarks awake alert vff nowno longer left sensory neglect 12/06 t/o nl gait Assessment and Plan Assessment and Plan imp droop and vision resolved mri no cva afib on ivhep leroy need anticoag eliquis ok by me mi also andrew pend ldl 133 on statin echo pend cards andrew ok by me no cva but major tia 12/19/17 nl neuro ox3 he has absolutely no idea what has occurred to him nor about eliquis nor bleeding risk i dw him all these and he could not really tell me back what i had just said denies learning disability mi tia and asa and eliquis will need to be in depth explained to him and probably his sister who is supposed to be coming down and written clearly for hi so he does not mess upeliquis at home echo nl needs someone to check in at home with him also to make sure he is doing all properly Junior Richard MD December 19, 2017 07:46
[2017-12-19 08:00] VITALS: PULSE 60
[2017-12-19] MEDS: INSULIN ASPART SUPPLEMENTAL SCALE SQ SCH ×2 (08:00→11:33)
[2017-12-19] MEDS: SODIUM CHLORIDE 0.9% FLUSH 10 ML FLUSH IV FLUSH SCH (08:15)
[2017-12-19] MEDS: ATORVASTATIN 40 MG TAB PO SCH (08:16)
[2017-12-19] MEDS: ASPIRIN 325 MG TAB PO SCH (08:16)
[2017-12-19] MEDS: DOCUSATE SODIUM 50 MG/SENNA 8.6 MG TAB PO SCH (08:16)
[2017-12-19 08:36] VITALS: BP 117/81; PULSE 64; RESP 20; TEMP 98.6; O2SAT 94
--- NOTE | 2017-12-19 09:55 | RADRPT ---
EXAM DATE/TIME: 12/18/2017 13:24 [facility] COMPARISON: No previous studies available for comparison. INDICATIONS : Mid chest pressure for one day. Elevated troponins. Atrial fibrillation. Myocardial infarction. DOSE: 30.1 mCi Tc99m Myoview at stress. 30.1 mCi Tc99m Myoview at rest. 0.4 mg Lexiscan STRESS SYMPTOMS: None. EJECTION FRACTION: 53% MEDICAL HISTORY : Stroke. SURGICAL HISTORY : None. ENCOUNTER: Initial ACUITY: 1 day PAIN SCALE: 0/10 LOCATION: Midsternal chest TECHNIQUE: The patient underwent pharmacologic stress with infusion of prescribed dose. Continuous ECG tracing was monitored during stress. Gated SPECT imaging was performed after stress and conventional SPECT i maging was performed at rest. The examination was performed on a SPECT/CT scanner, both attenuation and non-corrected datasets were reviewed. FINDINGS: DISTRIBUTION: The maximum perfused segment at stress is in the septal wall. PERFUSION STUDY: The pattern of perfusion at stress is abnormal. There are large, fixed perfusion defects involving th e anterior and portions of the inferior wall. No definite reversible perfusion abnormality is identif ied. There is dilation of the ventricular cavity. GATED STUDY: There is a mild global hypokinesis. CONCLUSION: Large, fixed perfusion defects involving the anterior and portions of the inferior wall consistent wi th old areas of infarct. No definite reversible perfusion abnormalities identified. RISK CATEGORY: Intermediate (1-3% Annual Mortality Rate) Camilo Oakley MD on December 19, 2017 at 9:51 Board Certified Radiologist. This report was verified electronically.
[2017-12-19] MEDS: SODIUM CHLOR 0.9% 1000 ML INJ 1,000 ML IV SCH (11:35)
[2017-12-19 12:04] VITALS: BP 119/59; PULSE 78; RESP 20; TEMP 97.8; O2SAT 93
--- NOTE | 2017-12-19 12:22 | HM ---
Date Performed: 12/15/2017 Time Performed: 22:10:00 HOOKUP DATE: 12/15/17 10:10:00 PM Mon ANALYSIS START TIME: 12/15/2017 10:15:00 PM ANALYSIS END TIME: 12/16/2017 9:24:21 PM PATIENT AGE: 67 PATIENT HEIGHT PATIENT WEIGHT DRUG LIST PATIENT DIAGNOSIS: TIA ELEVATED TROPONIN TEST NARRATIVE: The patient's average heart rate was 76 BPM. Heart rates greater than 120 B PM were noted 1% of the time. Heart rates less than 50 BPM were noted < 1% of the time. 19 pause s exceeding 2.0 seconds were noted. The longest pause of 2.7 seconds occurred at 11:43:51 PM Mon. 1190 ventricular ectopics, which represented 1% of the total beat count, were noted. The highest v entricular ectopic frequency occurred from 12:00 PM to 01:00 PM Tue. During this time 119 VE(s) occu rred. Ventricular ectopics were observed as 905 isolated beat(s), as 101 couplet(s) and as 26 run(s) . No supraventricular ectopics were noted. Multiple episodes of ST depression (defined as -1. 0 mm or more) were noted in channel 1. The maximum depression of -1.6 mm occurred at 07:18:13 PM Tu e. No episodes of ST depression (defined as -1.0 mm or more) were noted in channel 2. No episodes o f ST depression (defined as -1.0 mm or more) were noted in channel 3. TEST INTERPRETATION: Atrial fibrillation Some episodes of high heart rate Some PVCs vs Pacing be ats No pause No ventricular tachycardia observed There is no entry in the diary Signed by : Bart Lares
[2017-12-19] MEDS: HEPARIN-D5W 25,000 U/250 ML 250 ML IV PRN (13:33)
--- NOTE | 2017-12-19 16:20 | HHI.FF ---
Face to Face Verification Diagnosis: (1) TIA (transient ischemic attack) Physical Therapy Order: Evaluate and Treat Home Health Nursing Order: Medication education-adverse effect Nursing assessment with vital signs Instructions: Home health nurse for medication management. I have seen patient Jackson Cates on 12/19/17. My clinical findings support the need for the requested home health care services because: Med compliance is questionable Limited ability to care for self I certify that my clinical findings support that this patient is homebound because: Impaired cognitive ability/safety Skip Mejia MD December 19, 2017 16:20
[2017-12-19] MEDS ORDERED: APIX5TAB PO (16:27)
[2017-12-19] MEDS ORDERED: ASPI81TA23 PO (16:27)
--- NOTE | 2017-12-19 16:30 | HHI.PR ---
Subjective Remarks Patient sitting up in chair at bedside. Appears comfortable. Says he is feeling well. Would like to go home. Denies any chest pain or shortness of breath. Denies any lightheadedness or dizziness. Objective Vital Signs Date Time Temp Pulse Resp B/P (MAP) Pulse Ox O2 Delivery O2 Flow Rate FiO2 12/19/17 12:04 97.8 78 20 119/59 (79) 93 12/19/17 08:36 98.6 64 20 117/81 (93) 94 12/19/17 08:00 60 12/19/17 04:00 97.3 78 18 118/81 (93) 95 12/19/17 00:00 97.8 72 18 123/83 (96) 95 12/18/17 20:00 98.0 67 18 116/82 (93) 96 I/O 12/18/17 12/18/17 12/18/17 12/19/17 12/19/17 12/19/17 07:00 15:00 23:00 07:00 15:00 23:00 Intake Total 60 ml 730 ml 1725 ml Output Total 1150 ml 850 ml 900 ml Balance -1090 ml -120 ml 825 ml Intake Oral 60 ml 480 ml 750 ml IV Total 250 ml 975 ml Output Urine Total 1150 ml 850 ml 900 ml # Voids 3 # Bowel Movements 1 1 4 Result Diagram: 12/18/17 0600 12/16/17 0515 Objective Remarks GENERAL: Patient sitting up at bedside. Appears comfortable. Alert and oriented 3. SKIN: Warm and dry. HEAD: Normocephalic. EYES: No scleral icterus. No injection or drainage. NECK: Supple, trachea midline. No JVD. CARDIOVASCULAR: Regular rate and irregular rhythm without murmurs, gallops, or rubs. RESPIRATORY: Breath sounds equal bilaterally. No accessory muscle use. GASTROINTESTINAL: Abdomen soft, non-tender, nondistended. MUSCULOSKELETAL: No cyanosis, or edema. BACK: Nontender without obvious deformity. No CVA tenderness. A/P Assessment and Plan Assessment/plan: //TIA vs Stroke -Initially with left hand weakness which has resolved. Head CT negative Neck CTA negative Brain MRI negative Head CTA showed a nonocclusive versus chronic thrombus in the right distal M1 segment Neurology consulted, appreciate recommendations Aspirin Lipid profile, A1c pending = Follow-up 2D echo. LDL 133. Start atorvastatin. treatment for atrial fibrillation as below. = 2D echo reviewed by cardiology. Cleared for discharge. Follow-up with cardiology as outpatient. //Elevated troponin EKG showed atrial fibrillation without ST segment elevation or depression Initial troponin 6.71, repeat 6.46 Likely secondary to CVA Heparin drip Cardiology consulted, appreciate recommendations ACS rule out pending; serial troponins/EKGs = Cardiology following.. Appreciate assistance. Ischemic eval for heart when cleared by neurology. Negative ischemic eval. = 12/19. Cleared by cardiology. Continue on statin. //Atrial fibrillation Patient with atrial fibrillation on EKG, with no previous diagnosis of A. fib Cardiology consulted as above Patient will likely need long-term anticoagulation = Patient continues on heparin drip to atrial fibrillation. Cardiology following. Start on warfarin versus novel anticoagulation when approved by neurology. Follow-up 2D echo. = 12/19. Start on Eliquis. Will cardiology as outpatient. FEN NPO Electrolytes: monitor and replete prn Heparin ggt NS at 75 cc/hr Discharge Planning Home with home health nursing for medication management. Skip Mejia MD December 19, 2017 16:30
--- NOTE | 2017-12-19 16:32 | HHI.DS ---
Discharge Summary Admission Date December 15, 2017 at 19:42 Discharge Date: December 19, 2017 Admitting Diagnosis tia, elevated troponin Brief History - From Admission 67-year-old male with no significant past medical history presents to the emergency department for evaluation of multiple falls and weakness. The patient reports that he came to the emergency department because he fell 2-3 times today. He denies any weakness. He denies hitting his head or loss of consciousness. According to emergency department documentation at 10:00 yesterday morning the patient developed weakness in his right arm and right leg and called an ambulance. The patient started to feel better and sent the ambulance away. The patient then developed weakness again approximately 30 minutes later and had difficulty seeing and was off balance. EMS was again called and the patient came to the hospital for further evaluation. The patient states he feels fine at this time. He denies any chest pain or shortness of breath. No abdominal pain. No nausea/vomiting/diarrhea. No fever /chills. CBC/BMP: 12/18/17 0600 12/16/17 0515 Significant Findings Laboratory Tests Test 12/16/17 17:00 12/17/17 00:05 12/17/17 07:05 12/17/17 14:20 Activated Partial Thromboplast Time 32.0 SEC (24.3-30.1) 33.1 SEC (24.3-30.1) 35.6 SEC (24.3-30.1) 31.5 SEC (24.3-30.1) Test 12/17/17 23:01 12/18/17 06:00 12/18/17 17:23 12/19/17 03:27 Activated Partial Thromboplast Time 37.1 SEC (24.3-30.1) 37.3 SEC (24.3-30.1) 37.0 SEC (24.3-30.1) 47.4 SEC (24.3-30.1) Test 12/19/17 11:05 Activated Partial Thromboplast Time 35.5 SEC (24.3-30.1) Imaging Last Impressions Myocardial Perfusion Scan Nuc [facility] 12/18/17 0000 Signed Impressions: Service Date/Time: December 13:24 - CONCLUSION: Large, fixed perfusion defects involving the anterior and portions of the inferior wall 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 No definite reversible perfusion abnormalities identified. RISK CATEGORY: Intermediate (1-3%% Annual Mortality Rate) Camilo Oakley MD Brain MRI 12/15/17 1715 Signed Impressions: Service Date/Time: Friday, December 15, 2017 18:04 - CONCLUSION: No acute intracranial findings Jann Castrejon MD Neck CTA [id number] Signed Impressions: Service Date/Time: Friday, December 15, 2017 17:32 - CONCLUSION: No evidence of carotid stenosis Jann Castrejon MD Head CTA [id number] Signed Impressions: Service Date/Time: Friday, December 15, 2017 17:32 - CONCLUSION: 1. 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 Yannick Méndez MD Head CT 12/15/17 0000 Signed Impressions: Service Date/Time: Friday, December 15, 2017 17:27 - CONCLUSION: 1. No acute intracranial normality. Yannick Méndez MD PE at Discharge CARDIOVASCULAR: Regular rate and irregular rhythm without murmurs, gallops, or rubs. RESPIRATORY: Clear to auscultation. Breath sounds equal bilaterally. No wheezes , rales, or rhonchi. GASTROINTESTINAL: Abdomen soft, non-tender, nondistended. Normal, active bowel sounds MUSCULOSKELETAL: Extremities without clubbing, cyanosis, or edema. NEURO: Alert & Oriented x4 to person, place, time, situation. Moves all ext x4 Hospital Course //TIA vs Stroke -Initially with left hand weakness which has resolved. Head CT negative Neck CTA negative Brain MRI negative Head CTA showed a nonocclusive versus chronic thrombus in the right distal M1 segment Neurology consulted, appreciate recommendations Aspirin Lipid profile, A1c pending = Follow-up 2D echo. LDL 133. Start atorvastatin. treatment for atrial fibrillation as below. = 2D echo reviewed by cardiology. Cleared for discharge. Follow-up with cardiology as outpatient. //Elevated troponin EKG showed atrial fibrillation without ST segment elevation or depression Initial troponin 6.71, repeat 6.46 Likely secondary to CVA Heparin drip Cardiology consulted, appreciate recommendations ACS rule out pending; serial troponins/EKGs = Cardiology following.. Appreciate assistance. Ischemic eval for heart when cleared by neurology. Negative ischemic eval. = 12/19. Cleared by cardiology. Continue on statin. //Atrial fibrillation Patient with atrial fibrillation on EKG, with no previous diagnosis of A. fib Cardiology consulted as above Patient will likely need long-term anticoagulation = Patient continues on heparin drip to atrial fibrillation. Cardiology following. Start on warfarin versus novel anticoagulation when approved by neurology. Follow-up 2D echo. = 12/19. Start on Eliquis. Will cardiology as outpatient. FEN NPO Electrolytes: monitor and replete prn Heparin ggt NS at 75 cc/hr Discharge Planning Home with home health nursing for medication management. Pt Condition on Discharge: Stable Discharge Disposition: Discharge Home Discharge Time: > 30 minutes Discharge Instructions DIET: Follow Instructions for: Heart Healthy Diet Activities you can perform: Regular-No Restrictions Follow up Referrals: Cardiology - 1 Week Neurology - 1 Week with Junior Richard MD PCP Follow-up - 2-3 Days New Medications: Apixaban (Eliquis) 5 Mg Tab 5 MG PO BID for Blood Clot Prevention, #60 TAB [address] (Aspirin EC) 81 Mg Tabdr 81 MG PO DAILY for Blood Clot Prevention for 30 Days, #30 TAB 0 Refills Atorvastatin (Atorvastatin) 40 Mg Tab 40 MG PO DAILY for Cholesterol Management, #30 TAB Skip Mejia MD December 19, 2017 16:32
[2017-12-19 16:43] VITALS: BP 127/68; PULSE 68; RESP 20; TEMP 97.4; O2SAT 94
== END 2017-12-19 18:20 | disposition home or self-care (01) | DRG 69 ==
LOC: NEPC 17:01 → NEDA 19:42 → NEDH 23:54 → HIME 12-16 07:35 → N05B 12-18 15:20
PROVIDERS: ADMIT Internal Medicine; ATTEND Internal Medicine
DX: G45.8 Other transient cerebral ischemic attacks and related syndromes (principal); I66.01 Occlusion and stenosis of right middle cerebral artery; I48.91 Unspecified atrial fibrillation; E11.65 Type 2 diabetes mellitus with hyperglycemia; H53.462 Homonymous bilateral field defects, left side; R27.0 Ataxia, unspecified; E66.9 Obesity, unspecified; R74.8 Abnormal levels of other serum enzymes; F17.210 Nicotine dependence, cigarettes, uncomplicated; Z68.36 Body mass index [BMI] 36.0-36.9, adult
CPT/HCPCS: 70450; 70496; 70498; 70553; 78452; 80048; 80061; 80307; 81001; 82550; 82607; 82948; 83036; 84425; 84439; 84443; 84450; 84460; 84484; 85025; 85027; 85384; 85610; 85652; 85730; 86038; 86592; 86850; 86900; 86901; 87641; 93005; 93017; 93225; 93226; 93306; 96360; A9502; A9579; J1644; J2785; J7030; P9612; Q9967